=== PATIENT | female | born 1950 | race Caucasian/White ===

== ENCOUNTER 2018-11-02 05:11 | Inpatient (IN) | payer MEDICARE, BC ==
[~2018-11-02] VITALS: Ht 157.5 cm; Wt 64.5 kg
[2018-11-02] VITALS (10 sets, daily range): BP systolic 113–156; BP diastolic 63–91; PULSE 69–95; TEMP 97.4–98
[2018-11-02] MEDS ORDERED: GLUCOPHAGE500 MG/TAB PO ×2 (05:44→05:45)
[2018-11-02] MEDS ORDERED: TOPROL XL 50MG50 MG PO (05:45)
[2018-11-02] MEDS ORDERED: ESTRACE0.5 MG PO (05:46)
[2018-11-02] MEDS ORDERED: AMITRIPTYLINE H10 M1 PO (05:46)
[2018-11-02] MEDS ORDERED: CRESTOR20 MG PO (05:46)
[2018-11-02 06:04] LABS: BASO % 0.6 % (0.0-2.0); EOS # 0.2 (0.0-0.7); EOS % 4.6 % (0-4.0); GRAN # 2.2 (1.4-6.5); GRAN % 43.4 % (42.2-75.2); HEMATOCRIT 39.7 % (37.0-47.0); HEMOGLOBIN 12.8 g/dl (12.5-16.0); LYMPH # 2.1 (1.2-3.4); LYMPH % 42.1 % (20.0-51.0); MEAN CELL VOLUME 86 fl (80.0-100.0); MEAN CORPUSCULAR HEMOGLOBIN 28 pg (27.0-31.0); MEAN CORPUSCULAR HGB CONC 32 g/dl (33.0-37.0); MEAN PLATELET VOLUME 8.9 fl (7.4-10.4); MONO # 0.5 (0.1-0.6); MONO % 9.3 % (1.7-9.3); PLATELET COUNT 261 K/mm3 (130-400); RED BLOOD COUNT 4.61 M/mm3 (4.10-5.30); REDCELL DISTRIBUTION WIDTH-CV 14.3 % (11.5-14.5)
--- NOTE | 2018-11-02 13:43 | NUR ---
Patient received post op at 1145. Report from Pepper. Patient to room 325. Patient has been drowsy. She denies pain and nausea. Assessment completed. [facility] lap sites x5. Edges well approximated. Mistry to DD-Mesh underwear with peripad in place-packing present. patient has no interest in clear at this time, wanting to rest. Will follow ERAS protocol.
--- NOTE | 2018-11-02 19:00 | NUR ---
Report received from Zoë BOSWELL. Pt resting in chair. No distress noted. Pt ambulated back to bed without difficulty. Pt denies pain at this time. Pt has lap sites x5, open to air. SCDs bilaterally. Lungs clear. Respirations unlabored. BS+. Patient denies nausea. Mistry catheter to dependent drainage. Output is clear, yellow. No needs noted. Will continue to monitor.
--- NOTE | 2018-11-02 19:40 | NUR ---
Patient sat up in chair & ambulated the halls this evening & did well, but she did feel a little unsteady on her feet. Patient blood glucose elevated, she did not want insulin per sliding scale, she wanted to recheck this eveing. Patient felt ready to advance her diet. She had soup & yogurt for dinner & tolerated without nausea. Toradol not given for pain per pain request due to history of GI bleed with Nsaids. She did take ultram Prn for pain. Patient jarquin to DD with adequate urine output. Mesh underwear in place with peripad. Scds ble. Iv to Int. Vss on room air. Bedside report to Tsering BOSWELL
[2018-11-03 00:11] VITALS: BP 129/72; PULSE 84; TEMP 97.9
--- NOTE | 2018-11-03 00:23 | NUR ---
Pt resting. Denies pain. Pt refusing Toradol d/t allergy to NSAIDS. Pt also refuses Tylenol d/t no pain at this time. Blood sugar WNL-no insulin required.
[2018-11-03 04:26] VITALS: BP 114/53; PULSE 73; TEMP 98.6
--- NOTE | 2018-11-03 06:00 | NUR ---
Pt resting in bed this AM. No distress noted. Mistry catheter draining clear yellow urine. 800mL emptied from bag. 10mL ermoved from catheter ballon and catheter discontinued. Vaginal packing also removed per MD order. Well tolerate by patient. Pad with minimal drainage changed. No needs noted.
--- NOTE | 2018-11-03 07:48 | NUR ---
Patient up to chair this am, tolerated breakfast. No nausea. Patient ambulated the halls & did well. Lap site x5 edges well approcximated. abdomen rounded, she denies yet passing flatus, but bowels audible. Int. scds. Patient hopeful for discharge home today
[2018-11-03 08:36] VITALS: BP 123/66; PULSE 76; TEMP 97.6
--- NOTE | 2018-11-03 09:22 | NUR ---
Initial visit; Patient thanked [employer] Caseworker for looking in on her and offering God's blessings.
[2018-11-03 11:57] VITALS: BP 148/66; PULSE 65; TEMP 98.4
--- NOTE | 2018-11-03 12:21 | NUR ---
Patient ordering lunch. ready to take a shower. Awaiting doctor to rounded, wanting to discharge this evening.
--- NOTE | 2018-11-03 14:26 | NUR ---
SW student met with patient to discuss discharge plan. Patient lives in [place] with her , [address] Patient's PCP is Dr. Menjivar and she receives her medications from [facility] in [place]. Patient does not use any assistive devices and reports independence with ADLs. Patient states she has a Living Will completed but was not interested in completing a DPOA-HC at this time. No additional needs at this time. Patient is to discharge today, 11/03.
--- NOTE | 2018-11-03 14:41 | NUR ---
Patient ready for discharge. rounded. orders obtained. 1 gram ancef given per orders. All discharge instructions reviewed. Patient denies questions and concerns. We reviewed diet & activity restrictions. We discussed insicion care & signs & symptoms to call doctor. She has her follow up appt scheduled. Patient ambulated out with all belongings. Her daughter in law taking her home.
== END 2018-11-03 14:48 | disposition home or self-care (01) | DRG 748 ==
LOC: SDCO 05:11 → INPTSU 05:20 → SDCO 07:30 → SURG 11:44
PROVIDERS: ADMIT Urology
PROC: 8E0W4CZ Robotic Assisted Procedure of Trunk Region, Percutaneous Endoscopic Approach (ICD-10-PCS; 2018-11-02)
PROC: 0USG4ZZ Reposition Vagina, Percutaneous Endoscopic Approach (ICD-10-PCS; principal; 2018-11-02 07:30)
PROC: 0TUD0JZ Supplement Urethra with Synthetic Substitute, Open Approach (ICD-10-PCS; 2018-11-02 07:30)
DX: N99.3 Prolapse of vaginal vault after hysterectomy (principal); N39.3 Stress incontinence (female) (male); E11.9 Type 2 diabetes mellitus without complications; I10 Essential (primary) hypertension; E78.5 Hyperlipidemia, unspecified; R35.1 Nocturia; Z79.4 Long term (current) use of insulin
CPT/HCPCS: A4216; A4314; C1771; C1781; J0690; J0696; J1100; J1650; J2250; J2405; J2704; J2710; J2765; J3010; J7050; J7120